=== PATIENT | male | born 1990 | race Caucasian/White ===

== ENCOUNTER 2016-06-01 09:50 | Emergency (ER) | payer OTHER ==
[2016-06-01 10:35] LABS: BASOPHIL 0.1 % (0-2); EOSINOPHIL 0 % (0-5); HCT 46.7 % (42.0-52.0); HGB 15.4 g/dl (13.2-18.0); LYMPHOCYTE 11.5 % (15-48); MCH 27.4 pg (25.0-31.0); MCV 82.9 fL (78.0-100.0); MPV 10.6 fL (6.0-9.5); NEUTROPHIL 84.4 % (41-80); PLT 355 K/uL (150-400); RBC 5.63 M/uL (4.70-6.00); RDW 14.6 % (11.5-14.0); WBC 12.1 K/uL (4.0-10.5)
[2016-06-01 10:43] LABS: ALBUMIN 5.4 g/dL (3.5-5.0); BILIRUBIN - TOTAL 0.6 mg/dL (0.1-1.0); MAGNESIUM 2.1 mg/dL (1.40-2.10); POTASSIUM 4.1 mmol/L (3.5-5.1); TOTAL PROTEIN 9.4 g/dL (6.4-8.3)
[2016-06-01 11:05] LABS: BILIRUBIN 2+ mg/dL (NEGATIVE); BLOOD NEGATIVE Ery/uL (NEGATIVE); CLARITY CLEAR (CLEAR); COLOR YELLOW (YELLOW); GLUCOSE (U) NORMAL (NORMAL); KETONE (U) 2+ (MODERATE) mg/dL (NEGATIVE); LEUKOCYTES NEGATIVE Leu/uL (NEGATIVE); NITRITE NEGATIVE (NEGATIVE); PROTEIN 2+ mg/dL (NEGATIVE); SPECIFIC GRAVITY >=1.030 (1.001-1.030); pH 5.5 (5.0-9.0)
[2016-06-01 11:18] LABS: MUCOUS LARGE
[2016-06-01 11:20] LABS: BACTERIA TRACE
[2016-06-01 11:23] LABS: AMPHETAMINES NEGATIVE (NEGATIVE); BENZODIAZEPINES NEGATIVE (NEGATIVE); COCAINE NEGATIVE (NEGATIVE); MARIJUANA (THC) POSITIVE (NEGATIVE)
[2016-06-01 11:24] LABS: BARBITURATES NEGATIVE (NEGATIVE); METHADONE NEGATIVE (NEGATIVE); TRICYCLIC ANTIDEPRESSANT POSITIVE (NEGATIVE)
== END 2016-06-01 13:06 | disposition home or self-care (01) ==
LOC: FER 09:50
PROVIDERS: Emergency Medicine
DX: F11.23 Opioid dependence with withdrawal (principal); E86.0 Dehydration
CPT/HCPCS: 36415; 80053; 80305; 81001; 83690; 83735; 84484; 85025; 93005